=== PATIENT | male | born 1970 | race Caucasian/White ===

== ENCOUNTER 2021-05-05 10:13 | Emergency (ER) | payer MEDICARE, MEDICAID ==
[~2021-05-05] VITALS: Ht 167.6 cm; Wt 54.5 kg
[~2021-05-05 10:13] MED LIST: ALBU18HF2 INH; CYCL-394 PO; HYDR1TAB69 PO; IBUP-1573 PO; TIZA2CAP7 PO; TRAM50TA2 PO; XANAFLEX
[2021-05-05 10:17] VITALS: BP 127/65
== END 2021-05-05 11:05 | disposition home or self-care (01) ==
LOC: ER 10:14
DX: K12.0 Recurrent oral aphthae (principal); J45.909 Unspecified asthma, uncomplicated; G89.29 Other chronic pain; Z72.89 Other problems related to lifestyle; Z79.899 Other long term (current) drug therapy; Z91.018 Allergy to other foods
CPT/HCPCS: 99281

== ENCOUNTER 2022-03-19 15:04 | Emergency (ER) | payer MEDICARE, MEDICAID ==
[~2022-03-19] VITALS: Ht 165.1 cm; Wt 60.0 kg
[2022-03-19 15:16] VITALS: BP 127/74
[2022-03-19] MEDS ORDERED: NIRM1TAB PO (19:56)
== END 2022-03-19 20:14 | disposition home or self-care (01) ==
LOC: ER 15:05
DX: U07.1 COVID-19 (principal); R05.9 Cough, unspecified; R51.9 Headache, unspecified; J45.909 Unspecified asthma, uncomplicated; G89.29 Other chronic pain; Z72.89 Other problems related to lifestyle; Z98.890 Other specified postprocedural states; Z88.8 Allergy status to other drugs, medicaments and biological substances; Z79.899 Other long term (current) drug therapy
CPT/HCPCS: 87502; 87503; 87635; 99283; C9803

== ENCOUNTER 2023-01-17 10:01 | Emergency (ER) | payer MEDICAID, MEDICARE ==
[~2023-01-17] VITALS: Ht 167.6 cm; Wt 52.0 kg
[~2023-01-17 10:01] MED LIST changes: +NIRM1TAB PO
[2023-01-17 12:42] VITALS: BP 140/72; PULSE 68; RESP 18; TEMP 98.1; O2SAT 99
== END 2023-01-17 12:43 | disposition home or self-care (01) ==
LOC: ER 10:02
DX: H61.21 Impacted cerumen, right ear (principal); J45.909 Unspecified asthma, uncomplicated; Z88.6 Allergy status to analgesic agent; Z79.899 Other long term (current) drug therapy
CPT/HCPCS: 69209; 99282